=== PATIENT | female | born 1985 | race Caucasian/White ===

== ENCOUNTER → 2019-06-14 | Outpatient (CLI) | payer BC ==
--- NOTE | 2019-06-14 14:07 | RADIOLOGY REPORT (SQ) ---
EXAM DESCRIPTION: CT SOFT TISSUE NECK WITHOUT COMPLETED DATE/TIME: 06/14/2019 1:34 pm REASON FOR STUDY: (J35.1)HYPERTROPHY OF TONSILS J35.1 HYPERTROPHY OF TONSILS J02.9 ACUTE PHARYNGIT IS, UNSPECIFIED COMPARISON: None. TECHNIQUE: Noncontrast scanning from skull base through lung apices with review of bone, soft tissue and lung windows. Reconstructed coronal and sagittal MPR images reviewed. All images stored on PAC S. All CT scanners at this facility use dose modulation, iterative reconstruction, and/or weight based d osing when appropriate to reduce radiation dose to as low as reasonably achievable (ALARA). [facility]: Dose Right [facility]: CareDose [facility]: Dose Right [facility]: Teradose 4D [facility]: Beestar RADIATION DOSE: mGy. LIMITATIONS: None. FINDINGS: SKULL BASE: Intact. MAJOR SALIVARY GLANDS: No solid or cystic masses. No inflammatory changes. LYMPHADENOPATHY: Scattered small cervical lymph nodes. No adenopathy. MUCOSAL MASSES OR ASYMMETRY: Symmetric fullness of the pharyngeal tonsils. No focal lesions. LARYNX/CORDS: No abnormal findings. LUNG APICES: Clear. BONES: Intact. THYROID: Normal size. No masses. PARANASAL SINUSES: Mucous membrane thickening in the right maxillary sinus. OTHER: No other significant finding. IMPRESSION: 1. SYMMETRIC FULLNESS OF THE PHARYNGEAL TONSILS WITH NO FOCAL LESIONS. NO SIGNIFICANT ADENOPATHY. N O OTHER SIGNIFICANT FINDING IN THE SOFT TISSUES OF THE NECK. 2. MUCOUS MEMBRANE THICKENING IN THE RIGHT MAXILLARY SINUS. TECHNICAL DOCUMENTATION: JOB ID: [id number] Quality ID # [id number]: Final reports with documentation of one or more dose reduction techniques (e.g., Au tomated exposure control, adjustment of the mA and/or kV according to patient size, use of iterative reconstruction technique) 2010 [employer]- All Rights Reserved Reading location - IP/workstation name: [email or web address]
== END ==
LOC: RAD 13:16
PROVIDERS: ATTEND Physician Assistant
DX: J35.1 Hypertrophy of tonsils (principal); J02.9 Acute pharyngitis, unspecified
CPT/HCPCS: 70490